=== PATIENT | female | born 1985 | race Caucasian/White ===

== ENCOUNTER → 2016-06-20 | Outpatient (CLI) | payer SELFPAY ==
[~2016-06-20] MED LIST: BIRTH CONTROL PILL; IBU-8800 MG PO; LORTAB 5/500 501 TAB PO; PENICILLIN250 MG PO; PRENATAL1 TA1 PO; SYNTHROID0.075 MG/T PO; ZOLOFT; ZOLOFT 100MG100 MG PO
== END ==
LOC: COL.RAD 13:15
DX: R59.0 Localized enlarged lymph nodes (principal)